=== PATIENT | female | born 2005 | race Two or more races ===

== ENCOUNTER 2025-06-03 16:59 | Emergency (ER) | payer OTHER, SELFPAY ==
[2025-06-03 17:03] VITALS: BP 113/69
[2025-06-03 17:42] LABS: Hematocrit 35.5 % (37.0-47.0); Hemoglobin 12.6 g/dL (12.0-16.0); Mean Corp Hgb Conc. 35.5 g/dL (33.0-37.0); Mean Corpuscular Volume 84.9 fL (81.0-99.0); Nucleated Red Blood Cells % 0 %; Platelet Count 283 10^3/uL (130-400); Red Cell Dist. Width 12.4 % (11.5-14.5)
[2025-06-03 17:52] LABS: ALT (SGPT) 26 U/L (0-35); AST (SGOT) 26 U/L (14-36); Albumin 4.5 g/dl (3.5-5.0); Alkaline Phosphatase 40 U/L (38-126); Blood Urea Nitrogen 8 mg/dl (7-17); Calcium 9.7 mg/dl (8.4-10.2); Carbon Dioxide 22 mmol/L (22-30); Chloride 104 mmol/L (98-107); Glucose 88 mg/dl (70-99); Potassium 3.8 mmol/L (3.5-5.1); Sodium 132 mmol/L (135-145); Total Protein 7.9 g/dl (6.3-8.2); eGFR > 60.00
--- NOTE | 2025-06-03 19:26 | ED.GENMED ---
History of Present Illness
General
Chief Complaint: Skin Surface Trauma
Source: patient and spouse
Time Seen by Provider: 06/03/25 18:54
History of Present Illness
History of Present Illness:
20-year-old female G1, P0, approximately 10 weeks gestation presents to the emergency department after suffering an accidental skin avulsion to the left thumb earlier this evening. Shortly after this event she started to feel very lightheaded,
diaphoretic, and had an episode of vomiting. This lasted less than 10 minutes and then resolved fully. She denies associated chest pain or pressure, palpitations, dyspnea, severe headache. Her cleaned the wound and dressed it before
arrival here. Patient is up-to-date on her immunizations including tetanus. Patient states that in general she has been having mild discomfort on the right side of her face and head and notes that she is intermittently nauseous and fatigued with
her . She denies recent dental work, change in voice, change in swallowing, ear pain, tinnitus, recent URI, or other complaint
Past History
Past History
ED Past Medical History: None
ED Past Surgical History: None
Social History
Tobacco: Non-smoker
Alcohol: None
Drug: None
Personal:
Living: with family
Phy Exam
Physical Exam
Physical Exam:
GENERAL: Alert , in no apparent distress
EYE: pupils equal and reactive, EOMI, no photophobia
NECK: Supple, no significant adenopathy.
ENT: o/p clr, mmm, no trismus, no drool, voice clear, normal dentition, TMs clear, no facial swelling erythema or tenderness to palpation noted.
CARDIAC: Regular rate and rhythm .
LUNGS: Clear breath sounds bilaterally, no acute respiratory distress, no wheezes/rales/rhonchi
ABDOMEN: Soft, without focal tenderness, no r/g, no cvat
NEUROLOGICAL: Alert and oriented, no focal neuro deficits
SKIN: Warm and dry, skin intact except for skin avulsion noted at the distal left thumb without involvement of nail, tendon, bone, no other abnormalities noted.
MUSCULOSKELETAL: No edema, well perfused.
PSYCH: Normal and appropriate interaction.
Course
Orders/Labs/Results
Orders:
Orders
06/03/25 17:08
Electrocardiogram (*1) Urgent
Reason for Study: Vertigo / Dizzy
06/03/25 17:09
EKG- Treatment ONCE
06/03/25 17:17
Complete Blood Count/With Diff Urgent
Comprehensive Metabolic Panel Urgent
HCG, Beta Quantitative [Beta HCG Quantitative] Urgent
Is this a screen?: No
Abnormal Lab Results
06/03/25
17:17
RBC 4.18 L 10^6/uL
(4.20-5.40)
Hct 35.5 L %
(37.0-47.0)
Sodium 132 L mmol/L
(135-145)
Creatinine 0.5 L mg/dL
(0.6-1.0)
06/03/25 17:17
06/03/25 17:17
Vital Signs
Initial and Last Documented VS:
Initial Vital Signs
Temp Pulse Resp BP Pulse Ox
98.3 F 77 18 113/69 100
06/03/25 17:03 06/03/25 17:03 06/03/25 17:03 06/03/25 17:03 06/03/25 17:03
Last Documented Vital Signs
Temp Pulse Resp BP Pulse Ox
98.3 F 77 18 113/69 100
06/03/25 17:03 06/03/25 17:03 06/03/25 17:03 06/03/25 17:03 06/03/25 17:03
Procedures
Laceration Closure
Left Thumb:
Status of Wound: clean
Size of Wound in cm: 3
Description of Wound Edges: sharp
Preparation: other (Already cleaned before arrival here)
Revision/Debridement: routine- no revision
Type of Closure: other (Gelfoam and then dressing bleeding then controlled)
*Pulse Oximetry
SaO2: 100
Oxygen Mode of Delivery: Room air
ED Attending Note
-
Portions of this chart may have been created with voice recognition software.� Occasional wrong word or��sound alike� substitutions may have occurred due to the inherent limitations of voice recognition software.
Discharge Plan
Departure
Patient Disposition: Home (Routine Discharge)
Date of Disposition: 06/03/25
Time of Disposition: 19:29
Condition: Good
Discharge Problem:
Avulsion of skin, Near syncope
Instructions: Near Fainting (DC), Amputation of the Finger or Fingertip (DC)
Referrals:
NONE,* [Family Provider, Internal Medicine]
Activity Restrictions/Additional Instructions:
IF YOU DEVELOP CHEST PAIN, SHORTNESS OF BREATH, FEVER, CHILLS, DRAINAGE SWELLING OR REDNESS FROM THE WOUND, ABDOMINAL PAIN, BLEEDING, OR OTHER WORRISOME SIGNS, PLEASE RETURN TO THE ER IMMEDIATELY
Interventions
Interventions:
*Risk Screen - Suicide Last Done: 06/03/25 17:03
*General Assessment Last Done: 06/03/25 17:03
*ED COVID-19 Vaccine History Last Done: 06/03/25 17:03
*ED Influenza Vaccine History Last Done: 06/03/25 17:03
Discharge Date and Time
Print Language: [email or web address]
[2025-06-03 19:29] VITALS: BP 114/71; BP 115/79; BP 116/70; PULSE 75; PULSE 76; PULSE 84
== END 2025-06-03 19:48 | disposition home or self-care (01) ==
LOC: EMR 16:59
PROVIDERS: Emergency Medicine; EMERGENCY PHYSICIAN Emergency Medicine
DX: O99.891 Other specified diseases and conditions complicating pregnancy (principal); S61.012A Laceration without foreign body of left thumb without damage to nail, initial encounter; R55 Syncope and collapse; O21.9 Vomiting of pregnancy, unspecified; X58.XXXA Exposure to other specified factors, initial encounter; Z3A.10 10 weeks gestation of pregnancy
CPT/HCPCS: 99283; 80053; 84702; 85025; 93005